=== PATIENT | male | born 1960 | race Two or more races ===

== ENCOUNTER 2016-12-22 08:51 | Emergency (ER) | payer OTHER, BC ==
[2016-12-22 09:01] VITALS: BP 197/125
--- NOTE | 2016-12-22 09:15 | ERNOTE ---
Upper Extremity HPI - General Extremities Pain Location: 2nd finger: left Time Seen by Provider: 12/22/16 09:04 Source: patient Exam Limitations: no limitations - Immun/Allergies/Home Medications Immunizations: IMMUNIZATION HX Immunizations Up to Date Yes Hx Pneumococcal Vaccination No Allergies/Adverse Reactions: Allergies Allergy/AdvReac Type Severity Reaction Status Date / Time No Known Allergies Allergy Verified 12/22/16 09:01 Home Medications: HOME MEDICATIONS Amox Tr/Potassium Clavulanate [Augmentin 875-125 Tablet] 875 mg PO Q12H #14 tab 12/22/16 [Last Taken Unknown] Atenolol [Tenormin] 100 mg PO DAILY 12/22/16 [Last Taken Unknown] Glimepiride [Amaryl] 4 mg PO DAILY@0700 12/22/16 [Last Taken Unknown] Lisinopril [Zestril] 10 mg PO DAILY 12/22/16 [Last Taken Unknown] Simvastatin [Zocor] 20 mg PO HS 12/22/16 [Last Taken Unknown] metFORMIN HCL [Metformin HCl ER] 1,000 mg PO BID 12/22/16 [Last Taken Unknown] oxyCODONE HCL/ACETAMINOPHEN [Percocet 5 MG/325 MG] 1 tab PO Q4H PRN #30 tab 06/09 [Last Taken Unknown] - History of Present Illness Narrative: Patient got finger caught in a piece of equipment at work cutting of his left index finger tip. He denies any other injury, denies need for pain meds currently Date (Duration): 12/22/16 Time (Timing): 08:30 Location of Incident: work Other Injuries: Reports: none Review of Systems - Review of Systems Constitutional: Absent: recent illness, fever ENT: Absent: sore throat Respiratory: Absent: shortness of breath Cardiology: Absent: chest pain Gastrointestinal/Abdominal: Absent: nausea, abdominal pain Genitourinary: Present: no symptoms reported Musculoskeletal: Present: See HPI Skin: Absent: rash Neurological: Absent: weakness, numbness - Patient's Past Medical History Patient History - Medical: Diabetes Type 2 Patient History - Cardiac/Respiratory: Coronary Heart Disease, Hypertension Patient History - Cancer: No Hx of Cancer Patient History - Surgical Procedures: Cardiac stent Patient History - Other: None - Social History Living Situations: home Abuse History: No History of abuse Psych History: No pertinent hx Smoking Status: Current every day smoker Cigarettes Packs Per Day: 1.5 Have you smoked in the past 12 months: Yes Alcohol Use: occasionally Drug Use: none - Immunizations Immunizations Up to Date: Yes Hx Pneumococcal Vaccination: No Physical Exam - Physical Exam General Appearance: Present: wd/wn, alert, no apparent distress Respiratory: Present: no respiratory distress Extremity Exam: Present: normal except - - left index finger: skin avulsion of distal finger tip, nail completely gone, large part of distal bone exposed Neurological Exam: Present: alert, oriented, normal mood/affect, no motor/ sensory deficits Skin Exam: Present: normal color, warm/dry ED Progress - Vital Signs Patient's Vital Signs:: I have reviewed the patient's vital signs. Vital Signs: Vital Signs 12/22/16 08:57 Temperature 36.8 C Pulse Rate 103 H Respiratory 16 Rate Blood Pressure 197/125 O2 Sat by Pulse 97 Oximetry - X-Ray X-Ray #1 X-Ray: finger - soft tissue defect, non displaced tuft fracture Interpretation: Interp. by me - Progress/Reassessment Chief Complaint: Laceration Progress Note-Subjective: 12/22/16 09:[address] Laurent 12/22/16 09:[address] Laurent, will call back with time frame on revision 12/22/16 09:45 Rx for augmentin, come to clinic for revision at 15:30, okay to eat 12/22/16 09:51 explained plan to patient and family Departure Clinical Impression: Avulsion of finger tip Qualifiers: Encounter type: initial encounter Qualified Code(s): S61.209A - Unspecified open wound of unspecified finger without damage to nail, initial encounter - Departure Disposition: Home self-care Condition: Good Instructions: Crush Injury of the Fingers or Toes Referrals: Feliberto Laurent MD [Staff Physician] - 12/22/16 3:30 pm Prescriptions: Amox Tr/Potassium Clavulanate [Augmentin 875-125 Tablet] 875 mg PO Q12H #14 tab oxyCODONE HCL/ACETAMINOPHEN [Percocet 5 MG/325 MG] 1 tab PO Q4H PRN #30 tab PRN Reason: Pain
[2016-12-22] MEDS ORDERED: DIPHTH,PERTUSS(ACELL),TET VAC 0.5 ML VIAL IM ONE ×2 (09:24→09:33)
[2016-12-22] MEDS ORDERED: ceFAZolin SODIUM 1 GM VIAL IM ONE (09:36)
[2016-12-22] MEDS ORDERED: ceFAZolin SODIUM 1 GM VIAL ONE (09:45)
[2016-12-22] MEDS ORDERED: WATER FOR INJECTION,STERILE 20 ML VIAL ONE (09:47)
== END 2016-12-22 10:08 | disposition home or self-care (01) ==
LOC: ER 08:51
DX: S61.301A Unspecified open wound of left index finger with damage to nail, initial encounter (principal); Z95.5 Presence of coronary angioplasty implant and graft; I10 Essential (primary) hypertension; E11.9 Type 2 diabetes mellitus without complications; F17.210 Nicotine dependence, cigarettes, uncomplicated; W31.89XA Contact with other specified machinery, initial encounter; Y93.89 Activity, other specified; Y92.63 Factory as the place of occurrence of the external cause; Y99.0 Civilian activity done for income or pay; Z23 Encounter for immunization